=== PATIENT | female | born 1985 | race Caucasian/White ===

== ENCOUNTER 2024-01-22 08:28 | Emergency (ER) | payer SELFPAY ==
--- NOTE | ~2024-01-22 | XR_ITS ---
EXAMINATION: XR CHEST 2 VIEW CLINICAL INFORMATION: Fever and cough, bodyaches COMPARISON: None TECHNIQUE: PA and lateral views of the chest obtained. FINDINGS: The lungs are clear. There are no pleural effusions. The cardiomediastinal silhouette is normal. XR/XR chest 2V IMPRESSION: No acute disease. Electronically signed by: Fareed Abrams MD 01/22/2024 09:47 AM EDT RP
[2024-01-22 08:52] VITALS: BP 140/86; PULSE 94; RESP 20; TEMP 36.8; O2SAT 96; BMI 37.0
--- NOTE | 2024-01-22 09:34 | ED_ITS ---
HPI - General Adult General Chief complaint: Dyspnea Stated complaint: Fever, cough, chills Time Seen by Provider: 01/22/24 09:02 Source: patient Mode of arrival: ambulatory Limitations: no limitations History of Present Illness ED Provider: SONU SILVA PA-C HPI narrative: 38 year old female with pmhx significant for HTN presents to the ED today for evaluation of productive cough, general malaise, myalgias, headache, SOB more notable on exertion and chest/ nasal congestion x2 days. States her two children at home have been ill with URI this past week. Children tested negative for c ovid/flu/rsv. Patient self tested at home for covid on Sunday with negative results. Reports associated subjective fevers, nausea and loose stools x2 2 days ago which have since resolved. Denies history of respiratory illnesses/asthma. Denies recent history for smoking however tates I do smoke some marijuana occasionally on the weekends, but haven't in 1-2 weeks . Denies OCP use. Denies recent travel or long car rides. Denies sore throat, chest pain, wheezing, calf pain/swelling, rashes. Related Data Previous Rx's ?Medication ?Instructions ?Recorded hydrochlorothiazide 12.5 mg tablet 12.5 mg PO DAILY 30 days #30 tabs 11/22/23 benzonatate 100 mg capsule 100 mg PO BID PRN cough #20 caps 01/22/24 prednisone 20 mg tablet 40 mg (2 x 20 mg) PO DAILY 4 days 01/22/24 #8 tabs Allergies Allergy/AdvReac Type Severity Reaction Status Date / Time No Known Allergies Allergy Verified 01/22/24 08:57 Review of Systems Review of Systems: Constitutional: No fever, chills, fatigue, night sweats, weight changes ENT/Mouth: No ear pain, hearing loss, nasal congestion, sinus pain, rhinorrhea, sore throat Eyes: No eye pain, swelling, redness, vision changes, discharge Cardio: No chest pain, palpitations, SOW, orthopnea, peripheral edema Pulm: No wheezing, dyspnea, hemoptysis, +productive cough, +SOB GI: No nausea, vomiting, hematemesis, abdominal pain, diarrhea, constipation, hematochezia, melena : No irregular bleeding, dysuria, frequency, urgency, hesitancy, hematuria, flank pain, urinary flow changes, urinary incontinence or retention MSK: No back pain, neck pain, joint pain, +myalgias Skin: No lesions, rashes Neuro: No weakness, numbness, paresthesias, LOC, dizziness, headache Psych: No anxiety/panic, depression, SI/HI, AH/VH All other systems reviewed and are negative. FORMERLY [facility], 1928–1983 Past Medical History Attestation statement: The following information was validated with the patient. Source: old records reviewed and nursing notes reviewed Social History Social History Advance Directives: No Advance Directives Information Provided: Yes Physical Exam ED Vital Signs: Vital Signs - 24 hr 01/22/24 08:52 01/22/24 09:54 01/22/24 10:20 Temperature 98.2 F 97.0 F Pulse Rate 94 95 124 H Respiratory Rate 20 18 16 Blood Pressure 140/86 H 145/84 H Pulse Oximetry 96 98 Oxygen Delivery Method Room Air Room Air BMI result Body Mass Index 37.0 vitals stable. not hypoxic. afebrile. General: Well appearing, in no acute distress. Skin: Warm, dry, intact. No rashes or lesions. Head: Normocephalic, atraumatic. EENT: Hearing is intact b/l. Conjunctiva clear. PERRLA. Moist mucous membranes.? Neck: Supple without LAD. FROM. Trachea midline.? Cardiac: Chest wall symmetric. RRR. No MRG. No JVD. Lungs: Normal respiratory effort without accessory muscle use. CTA bilaterally. No rales, rhonchi, or wheezes.? Back: No midline spinous or paraspinal tenderness. No step off deformity. Ext: Upper and lower extremities atraumatic, without tenderness, deformity, swelling or erythema. Full ROM throughout. no calf tenderness b/l. Neuro: AOx3. Normal speech. Ambulating with steady gait. Psych: Appropriate mood and affect. Responds appropriately to questions. Course Course Course Narrative: 1122 -- patient tested negative for COVID, flu, RSV. Her chest x-ray does not reveal pneumonia. She was treated with albuterol and Solu-Medrol in the ED and reports improvement in breathing. Likely viral upper respiratory infection. Will send her home with prednisone and Tessalon Perles for cough. Patient has remained stable throughout ED visit today. Discussed worrisome signs and symp toms and when to return to the ED. All questions answered at this time. Patient is agreeable with disposition and stable for discharge. Medications Administered Discontinued Medications Generic Name Dose Route Start Last Admin Trade Name Ev PRN Reason Stop Dose Admin Albuterol Sulfate 2.5 mg/ 5 mg 01/22/24 09:47 01/22/24 09:50 Albuterol Sulfate 2.5 mg INHALE 01/22/24 09:48 5 mg ONCE ONE Administration Methylprednisolone Sodium Succinate 80 mg 01/22/24 09:57 01/22/24 10:07 Methylprednisolone Sod Succ 125 Mg/2 Ml Vial IVPUSH 01/22/24 09:58 80 mg ONCE ONE Administration Medical Decision Making Medical Decision Making [facility] Narrative: 38 year old female with pmhx significant for HTN presents to the ED today for evaluation of productive cough, general malaise, myalgias, headache, SOB more notable on exertion and chest/ nasal congestion x2 days. Patient hypertensive to 140/86, vitals otherwise WNL. She did become tachycardic to 124 after albuterol treatment. Not hypoxic. Bronchospastic cough on exam. No tripoding or increased effort of breathing. Lungs are CTA bilaterally without wheezes, rales, rhonchi. RRR. Skin warm, dry, intact. No calf tenderness bilaterally. B/l EACs and TMs wnl. Posterior oropharynx wnl. Differential diagnosis includes viral syndrome, pneumonia, bronchitis. PREC 0- PE unlikely. Presentation not consistent with CATHERINE, arrhythmia, pleural effusion. Plan for viral swabs, CXR, ED bronch protocol, steroid, re-evaluation. Differential Diagnosis Differential Diagnoses: The differential diagnosis associated with the presentation includes as above. Admission/Observation Not indicated. Lab Data [facility] Lab Attestation statement: I reviewed the patient's lab results. as above. Labs: Lab Results 01/22/24 Range/Units 09:14 Influenza Type A (PCR) NEGATIVE (Negative) Influenza Type B (PCR) NEGATIVE (Negative) RSV RNA Qual (PCR) NEGATIVE (Negative) SARS-CoV-2 RNA (RT-PCR) NEGATIVE (Negative) Independent Interpretation I performed an independent interpretation of an: Plain X-Ray Interpretation: CXR without infiltrate or consolidation, agree with radiologist's interpretation. Radiology Impression Discussion of test interpretation with radiology: I have reviewed the radiologist's reading. Radiologist Impression: EXAMINATION: XR CHEST 2 VIEW CLINICAL INFORMATION: Fever and cough, bodyaches COMPARISON: None TECHNIQUE: PA and lateral views of the chest obtained. FINDINGS: The lungs are clear. There are no pleural effusions. The cardiomediastinal silhouette is normal. XR/XR chest 2V IMPRESSION: No acute disease. Electronically signed by: Fareed Abrams MD 01/22/2024 09:47 AM EDT RP Independent Historian Clinical information obtained from an independent historian. History obtained from or confirmed by: Spouse External Record Review External record reviewed: Inpatient record Social Determinants Patient?s care significantly limited by Social Determinants of Health including: Other Social Determinant of Health Critical Care Time Critical Care Time Critical Care Time: No Discharge Plan Discharge Clinical Impression: Upper respiratory infection Patient Disposition: Home, Self-Care Instructions: Upper Respiratory Infection (ED), Acute Bronchitis (ED), Viral Syndrome (ED) Additional Instructions: You tested negative for covid, flu, rsv. Your chest xray does not reveal pneumonia. You were treated with a breathing treatment and steroid in the ED today with improvement. You likely have a viral upper respiratory infection that does not require treatment with antibiotics. Prednisone as a steroid that has been sent to your pharmacy. Take this over the next 4 days starting tomorrow as you have already received a dose in the ED today. Tessalon Perles have been sent to your pharmacy for treatment of cough. Take these as needed. Return with new or worsening symptoms. In the case of an emergency call 911. Prescriptions: New benzonatate 100 mg capsule 100 mg PO BID PRN (Reason: cough) Qty: 20 0RF prednisone 20 mg tablet 40 mg PO DAILY 4 Days Qty: 8 0RF No Action hydrochlorothiazide 12.5 mg tablet 12.5 mg PO DAILY 30 Days Qty: 30 5RF Rx Instructions: [id number] [facility] [id number] Member [id number] Referrals: Charleen Alcazar PA-C [Primary Care Provider] - Stand Alone Forms: Work/School Release Print Language: Cambodian
[2024-01-22] MEDS: Albuterol Sulfate 2.5 MG, Albuterol Sulfate (0.083%) 2.5 MG 5 MG INHALE (09:50)
[2024-01-22 09:54] VITALS: PULSE 95; RESP 18; O2SAT 98
[2024-01-22 10:01] LABS: Influenza A PCR NEGATIVE (Negative); Influenza B PCR NEGATIVE (Negative); Resp Syncy Virus RNA Qual PCR NEGATIVE (Negative); SARS COV2 PCR INHOUSE NEGATIVE (Negative)
[2024-01-22] MEDS: methylPREDNISolone Sod Succ 125 MG/2 ML VIAL 80 MG IVPUSH (10:07)
[2024-01-22 10:20] VITALS: BP 145/84; PULSE 124; RESP 16; TEMP 36.1; O2SAT 98
[2024-01-22 11:54] VITALS: BP 145/84; PULSE 124; RESP 16; TEMP 36.1; O2SAT 98
== END 2024-01-22 11:55 | disposition home or self-care (01) ==
PROVIDERS: Emergency Provider Emergency Medicine Emergency Medical Services; PCP Family Medicine
DX: J06.9 Acute upper respiratory infection, unspecified (principal); R06.02 Shortness of breath; R50.9 Fever, unspecified; I10 Essential (primary) hypertension; R05.9 Cough, unspecified; R09.81 Nasal congestion; M79.10 Myalgia, unspecified site; Z03.818 Encounter for observation for suspected exposure to other biological agents ruled out; Z79.899 Other long term (current) drug therapy
CPT/HCPCS: 0241U; 71046; 94640; 96374; 99283; 99284; J2919

== ENCOUNTER 2025-02-25 07:51 | Emergency (ER) | payer SELFPAY ==
--- NOTE | ~2025-02-25 | XR_ITS ---
EXAMINATION: XR FEMUR 2 VIEWS RIGHT HISTORY: felt pop hamstring COMPARISON: There are no prior studies available for comparison. FINDINGS: AP and lateral views of the right femur are submitted. Osseous mineralization is normal. There is no fracture or dislocation. The visualized hip and knee joint spaces are preserved. The soft tissues are unremarkable. XR/XR femur RT 2V IMPRESSION: Unremarkable examination of the right femur. Electronically signed by: Pranay Ibrahim MD 02/25/2025 08:55 AM NARA
[2025-02-25 07:54] VITALS: BP 161/76; PULSE 73; RESP 20; TEMP 36.1; O2SAT 98; BMI 37.9
--- NOTE | 2025-02-25 07:57 | ED.GENADULT ---
HPI - General Adult General Chief complaint: Extremity Injury, Lower Stated complaint: Knee Leg Pain Time Seen by Provider: 02/25/25 07:55 Source: patient Mode of arrival: ambulatory Limitations: no limitations History of Present Illness ED Provider: ALEXANDRA SNYDER PA-C HPI narrative: 39 year old female presents to the ED today for evaluation of right leg pain x last night. Patient reports twisting motion of her right lower extremity when she felt a pop to her posterior thigh/buttock region. Having shooting pain down her right leg into her right knee. Reports difficulty ambulating. Denies any numbness/tingling/weakness of the right lower extremity. Denies blunt trauma or injury. Related Data Previous Rx's ?Medication ?Instructions ?Recorded benzonatate 100 mg capsule 100 mg PO BID PRN cough #20 caps 01/22/24 prednisone 20 mg tablet 40 mg (2 x 20 mg) PO DAILY 4 days 01/22/24 #8 tabs hydrochlorothiazide 12.5 mg tablet 12.5 mg PO DAILY 90 days #90 tabs 11/12/24 paroxetine HCl 10 mg tablet (Paxil) 10 mg PO DAILY 90 days #90 tabs 01/14/25 naproxen 500 mg tablet 500 mg PO BID PRN pain (scale 02/25/25 score 4-6) #30 tabs Allergies Allergy/AdvReac Type Severity Reaction Status Date / Time No Known Allergies Allergy Verified 02/25/25 07:56 Review of Systems Review of Systems: Yes all other systems are reviewed and are negative PMFSH Past Medical History Attestation statement: The following information was validated with the patient. Source: old records reviewed and nursing notes reviewed Social History Social History Advance Directives: No Advance Directives Information Provided: Yes Patient : No Physical Exam ED Vital Signs: Vital Signs - 24 hr 02/25/25 07:54 02/25/25 08:25 Temperature 96.9 F Pulse Rate 73 75 Respiratory Rate 20 21 H Blood Pressure 161/76 H 146/86 H Pulse Oximetry 98 96 Oxygen Delivery Method Room Air Room Air BMI result Body Mass Index 37.9 hypertensive, vitals are otherwise wnl General: Well appearing, in no acute distress. Skin: Warm, dry, intact. No rashes or lesions. Head: Normocephalic, atraumatic. EENT: Hearing is intact b/l. Conjunctiva clear. PERRLA. EOM intact. Moist mucous membranes.? Neck: Supple without LAD Cardiac: Chest wall symmetric. RRR Lungs: Normal respiratory effort without accessory muscle use. CTA bilaterally Back: No midline spinous or paraspinal tenderness. No step off deformity. Ext: Upper and lower extremities atraumatic, without tenderness, deformity, swelling or erythema. +Reproducible tenderness to palpation of posterior thigh along hamstring muscles. No overlying ecchymosis or hematoma. No palpable induration. compartments soft, compressible. Able to fully extend the right knee, reports pain to hamstring muscles with flexion of the right knee. 2+dp pulse intact. ambulating w/ limping gait. Neuro: AOx3. Normal speech Course Course Course Narrative: xr right femur unremarkable. medicated w/ toradol - endorses improvement in pain. Likely hamstring injury. Will provide patient with crutches. Educated on supportive management. Advised outpatient follow up. Patient has remained stable throughout ED visit today. Discussed worrisome signs and symptoms and when to return to the ED. All questions answered at this time. Patient is agreeable with disposition and stable for discharge. Medications Administered Discontinued Medications Generic Name Dose Route Start Last Admin Trade Name Freq PRN Reason Stop Dose Admin Ketorolac Tromethamine 30 mg 02/25/25 08:19 02/25/25 08:30 Ketorolac Tromethamine 30 Mg/Ml Vial IM 02/25/25 08:20 30 mg ONCE ONE Administration Procedures Orthopedic Splinting/Casting Injury #1: Side: right Other Orthopedic Equipment: crutches Medical Decision Making Medical Decision Making MDM Narrative: 39 year old female presents to the ED today for evaluation of right leg pain x last night. Hypertensive, vitals otherwise WNL. She is generally well-appearing, no acute distress. on exam, rreproducible tenderness to palpation of posterior thigh along hamstring muscles. No overlying ecchymosis or hematoma. No palpable induration. Compartments soft, compressible. Able to fully extend the right knee, reports pain to hamstring muscles with flexion of the right knee. 2+dp pulse intact. ambulating w/ limping gait. Differential diagnosis includes hamstring sprain/strain, muscle spasm. Lower suspicion for fracture. Unlikely intramuscular hematoma, DVT, arterial occlusion, threat to limb, compartment syndrome. Differential Diagnosis Differential Diagnoses: The differential diagnosis associated with the presentation includes As above Admission/Observation not indicated. Independent Interpretation I performed an independent interpretation of an: Plain X-Ray Interpretation: xr right femur without fracture Radiology Impression Discussion of test interpretation with radiology: I have reviewed the radiologist's reading. Radiologist Impression: Procedure(s): XR femur RT 2V Accession Number(s): [id number] cc: Charleen Alcazar PA-C; Alexandra Snyder~ Reason for Exam: felt pop hamstring EXAMINATION: XR FEMUR 2 VIEWS RIGHT HISTORY: felt pop hamstring COMPARISON: There are no prior studies available for comparison. FINDINGS: AP and lateral views of the right femur are submitted. Osseous mineralization is normal. There is no fracture or dislocation. The visualized hip and knee joint spaces are preserved. The soft tissues are unremarkable. XR/XR femur RT 2V IMPRESSION: Unremarkable examination of the right femur. Electronically signed by: Pranay Ibrahim MD 02/25/2025 08:55 AM [facility] External Record Review External record reviewed: Inpatient record Prescription Management I considered prescription management with: Pain Medication Social Determinants Patient?s care significantly limited by Social Determinants of Health including: Other Social Determinant of Health Critical Care Time Critical Care Time Critical Care Time: No Discharge Plan Discharge Clinical Impression: Hamstring strain Patient Disposition: Home, Self-Care Instructions: Muscle Strain (ED) Additional Instructions: You were evaluated in the ED today for acute pain to the back of your right thigh. Your physical exam and x-rays are reassuring. I have suspicion that you strained your hamstring. Your pain improved with Toradol in the ED today. I recommend supportive care including NSAIDs (naproxen), rest and ice at home. I have provided you with crutches for comfort. Please follow up with PCP and orthopedic provider. You have been provided with a referral. Call them to establish care. They will not call you. Return with any new or worsening symptoms. In the case of an emergency call 911. Prescriptions: New naproxen 500 mg tablet 500 mg PO BID PRN (Reason: pain (scale score 4-6)) Qty: 30 0RF No Action hydrochlorothiazide 12.5 mg tablet 12.5 mg PO DAILY 90 Days Qty: 90 1RF Rx Instructions: [id number] [facility] [id number] Member [id number] paroxetine HCl [Paxil] 10 mg tablet 10 mg PO DAILY 90 Days Qty: 90 0RF benzonatate 100 mg capsule 100 mg PO BID PRN (Reason: cough) Qty: 20 0RF prednisone 20 mg tablet 40 mg PO DAILY 4 Days Qty: 8 0RF Referrals: [facility] [Provider Group] Referral Note: hamstring injury Charleen Alcazar PA-C [Primary Care Provider, Family Practice] Print Language: Qatari
--- NOTE | 2025-02-25 08:21 | PC.NURSE ---
patient roomed and changed. examined by provider. VSS. complains of pain right leg and some numbness. elevated on pillows for comfort. cms good to both extremeties.
[2025-02-25 08:25] VITALS: BP 146/86; PULSE 75; RESP 21; O2SAT 96
[2025-02-25 10:30] VITALS: BP 142/93; PULSE 68; RESP 21; TEMP 36.4; O2SAT 98
--- OUTSIDE RECORDS SUMMARY | 2025-02-25 16:12 | XMS_ITS | Encounter Summary ---
Author Organization [facility] Address [address] [place] [phone] Phone Care Team Providers Care Switch Cleaner Name Role Phone Mayra Harrison CNP Primary Care Provider + Pcp, Unknown Primary Care Provider Unavailabl e Reason for Referral * Physical Therapy (Routine) - Closed Specialty Diagnoses / Procedures Referred By Eugene t Referred To Contact Physical Therapy Diagnoses Encounter for rehabilitation System, Provider Not In, PhD [address] [address] Nina Slade, PT [email or web address] Referral ID Status Reason Start Date Expiration Date Visits Re quested Visits Authorized [id number] Closed 05/31/2017 06/06/2018 22 22 Encounter Details Date Type Department Care Team (Latest Contact Info) Description 05/31/2017 Transcribe Orders [facility] Rehabilitation [facility] [address] [place] [address] Mayra Harrison CNP [address] [place] [phone] [email or web address] Encounter for rehabilitation (Primary Dx) Social History Tobacco Use Types Packs/Day Years Used Date Smoking Tobacco: Never Assessed Comments Unknown Sex and Gender Information Value Date Recorded Sex Assigned at Female 05/23/2021 8:16 PM EST Legal Sex Female 9:17 PM EDT Gender Identity Female 05/23/2021 8:16 PM EST Sexual Orientation Straight 05/23/2021 8: 16 PM EST documented as of this encounter Plan of Treatment Not on file documented as of this encounter Procedures Procedure Name Priority Date/Time Associated Diagnosis Comments AMB REFERRAL TO [facility] PHYSICAL THERAPY Routine 05/31/2017 5:05 PM EST Encounter for rehabilitation documented in this encounter Results * Ambulatory referral to [facility] Physical Therapy (05/31/2017 5:05 PM EST) us Provider Not In System PhD AMB [facility] REFERRALS Fin al Result documented in this encounter Visit Diagnoses Diagnosis Encounter for rehabilitation- Primary documented in this encounter Additional Health Concerns Infection Onset Date Last Indicated Resolved Time CoV-Risk 05/22/2022 05/22/2022 06/02/2022 1:23 AM EST documented as of this encounter Care Teams Switch Cleaner Relationship Specialty Start Date End Date Mayra Harrison CNP [address] [place] [phone] [email or web address] PCP - General Family Medicine 04/13/17 05/21/22 Pcp, Unknown PCP - General 05/22/22 documented as of this encounter Additional Source Comments The information contained in this document represents components of the legal health record. It is not the complete legal health record.[facility]
--- OUTSIDE RECORDS SUMMARY | 2025-02-25 16:12 | XMS_ITS | Encounter Summary ---
Author Organization [facility] Address [address] [place] [address] Phone Care Team Providers Care Parent Coach Name Role Phone Mayra Harrison CNP Primary Care Provider + Pcp, Unknown Primary Care Provider Unavailabl e Encounter Details Date Type Department Care Team (Latest Contact Info) Description 11/09/2020 Transcribe Orders [facility] [address] [place] [address] Fariha Thomason, [facility] [address], [address] [place] [address] [email or web address] Multigravida of advanced maternal age in first trimester (Primary Dx) Social History Tobacco Use Types Packs/Day Years Used Date Smoking Tobacco: Former Smokeless Tobacco: Never Alcohol Use Standard Drinks/Week Comments Not Currently 0 (1 standard drink = 0.6 oz pure alcohol) History of alcohol abuse. Sober since 2019. Comments Yes Sex and Gender Information Value Date Recorded Sex Assigned at Female 05/23/2021 8:16 PM EST Legal Sex Female 9:17 PM EDT Gender Identity Female 05/23/2021 8:16 PM EST Sexual Orientation Straight 05/23/2021 8: 16 PM EST documented as of this encounter Plan of Treatment Not on file documented as of this encounter Results * TOTAL PROTEIN CREATININE RATIO, RANDOM URINE (03/23/2021 8:49 AM EST) URINE TOTAL PROTEIN 8.3 mg/dL [facility] URINE CREATININE 79 mg/dL [facility] URINE TP CRE RATIO 0.11 0 - 0.19 [facility] Urine (Urine) 03/23/2021 8:4 9 AM EST 03/23/2021 10:18 AM EST us Fariha Limano CNM LAB URINE ORDERABLES F inal Result [facility] [address] [place] [address] documented in this encounter Visit Diagnoses Diagnosis Multigravida of advanced maternal age in first trimester- Primary documented in this encounter Additional Health Concerns Infection Onset Date Last Indicated Resolved Time CoV-Risk 05/22/2022 05/22/2022 06/02/2022 1:23 AM EST documented as of this encounter Care Teams Parent Coach Relationship Specialty Start Date End Date Mayra Harrison CNP [address] [place] [phone] [email or web address] PCP - General Family Medicine 04/13/17 05/21/22 Pcp, Unknown PCP - General 05/22/22 documented as of this encounter Additional Source Comments The information contained in this document represents components of the legal health record. It is not the complete legal health record.[facility]
--- OUTSIDE RECORDS SUMMARY | 2025-02-25 16:12 | XMS_ITS | Encounter Summary ---
Author Organization [facility] Address [address] [place] [phone] Phone Care Team Providers Care Button Bradder Name Role Phone Mayra Harrison CNP Primary Care Provider + Pcp, Unknown Primary Care Provider Unavailabl e Reason for Referral * Physical Therapy (Routine) - Closed Specialty Diagnoses / Procedures Referred By Eugene patterson Referred To Contact Physical Therapy Diagnoses Encounter for rehabilitation Mayra Harrison CNP Phone: tel: fax: [email or web address] Phone: tel: Referral ID Status Reason Start Date Expiration Date Visits Re quested Visits Authorized [id number] Closed 10/23/2017 10/23/2018 1 1 Encounter Details Date Type Department Care Team (Latest Contact Info) Description 10/23/2017 Transcribe Orders [facility] [address] [place] [address] Mayra Harrison CNP [address] [place] [phone] [email or web address] Encounter for rehabilitation (Primary Dx) Social History Tobacco Use Types Packs/Day Years Used Date Smoking Tobacco: Never Smokeless Tobacco: Never Comments Unknown Sex and Gender Information Value Date Recorded Sex Assigned at Female 05/23/2021 8:16 PM EST Legal Sex Female 9:17 PM EDT Gender Identity Female 05/23/2021 8:16 PM EST Sexual Orientation Straight 05/23/2021 8: 16 PM EST documented as of this encounter Plan of Treatment Scheduled Referrals Name Type Priority Associated Diagnoses Orde r Schedule Ambulatory referral to [facility] Physical Therapy Outpatient Referral Routine Encounter for rehabilitation Ordered: 10/23/2017 documented as of this encounter Visit Diagnoses Diagnosis Encounter for rehabilitation- Primary documented in this encounter Additional Health Concerns Infection Onset Date Last Indicated Resolved Time CoV-Risk 05/22/2022 05/22/2022 06/02/2022 1:23 AM EST documented as of this encounter Care Teams Button Bradder Relationship Specialty Start Date End Date Marya Harrison CNP [address] [place] [phone] [email or web address] PCP - General Family Medicine 04/13/17 05/21/22 Pcp, Unknown PCP - General 05/22/22 documented as of this encounter Additional Source Comments The information contained in this document represents components of the legal health record. It is not the complete legal health record.[facility]
--- OUTSIDE RECORDS SUMMARY | 2025-02-25 16:12 | XMS_ITS | Encounter Summary ---
Author Organization [facility] Address [address] [facility] [address] [place] [phone] Phone Care Team Providers Care Fuel Truck Driver Name Role Phone Mayra Harrison CNP Primary Care Provider + Pcp, Unknown Primary Care Provider Unavailabl e Encounter Details Date Type Department Care Team (Late st Contact Info) Description 04/13/2017 Transcribe Orders [facility] [address] [place] [address] Mayra Harrison CNP [address] [place] [phone] [email or web address] Abdominal pain, right lower quadrant (Primary Dx) Social History Tobacco Use Types [...] documented as of this encounter Results * (ABNORMAL) CBC and differential (04/13/2017 2:28 PM EST) WBC 8.67 3.40 - 11.20 K/uL [facility] RBC 4.96(H) 3.80 - 4.80 M/uL [facility] HGB 13.9 12.0 - 15.0 g/dL [facility] HCT 40.7 36.0 - 46.0 % [facility] PLT 297 130 - 400 K/uL [facility] MCV 82.1 79.0 - 98.0 fL [facility] MCH 28.0 27.0 - 34.8 pg [facility] MCHC 34.2 31.5 - 36.0 g/dL [facility] RDW 12.4 10.8 - 14.6 % [facility] MPV 10.3 9.4 - 12.4 fl [facility] NRBC 0.00 /100 WBCs [facility] ABSOLUTE NRBC 0.00 K/uL [facility] DIFF METHOD Auto [facility] NEUTS 65.5 45.30 - 77.70 % [facility] LYMPHS 24.6 12.30 - 39.70 % [facility] MONOS 6.5 4.10 - 12.80 % [facility] EOS 2.2 0 - 7.2 % [facility] BASOS 1.0 0 - 2.80 % [facility] Granulocytes, immature (%) 0.2 0.0 - 0.9 % [facility] ABSOLUTE NEUTS 5.68 1.40 - 7.70 K/uL [facility] ABSOLUTE LYMPHS 2.13 0.60 - 3.20 K/uL [facility] ABSOLUTE MONOS 0.56 0.11 - 0.59 K/uL [facility] ABSOLUTE EOS 0.19 0.01 - 0.50 K/uL [facility] ABSOLUTE BASOS 0.09(H) 0.00 - 0.08 K/uL [facility] Granulocytes, immature 0.02 0.00 - 0.05 K/uL [facility] Blood 04/13/2017 2:28 PM EST 04/13/2017 2:30 PM EST us Mayra Harrison PROCESSING REP LAB BLOOD BKR ORDERABLES Final Result [facility] [address] [place] [address] * (ABNORMAL) Basic metabolic panel (04/13/2017 2:28 PM EST) SODIUM 140 133 - 146 mmol/L [facility] CHLORIDE 99 96 - 108 mmol/L [facility] POTASSIUM 3.0(L) 3.3 - 5.1 mmol/L [facility] CO2 28 21 - 35 mmol/L [facility] BUN 8 6 - 19 mg/dL [facility] CREATININE 0.60 0.5 - 1.5 mg/dL [facility] GLUCOSE 103(H) 70 - 99 mg/dL [facility] CALCIUM 9.3 8.4 - 10.3 mg/dL [facility] EGFR >60 >60 mL/min/1.7 3m2 [facility] Comment:Abnormal if <60. If patient is -Citizen Of [place], multiply the result by 1.21. ANION GAP 16 10 - 20 mmol/L [facility] Blood 04/13/2017 2:28 PM EST 04/13/2017 2:30 PM EST us Mayra Harrison CNP LAB BLOOD BKR ORDERABLES Final Result Performing Organization Address City/State/[facility] Co de Phone Number [address] [phone] documented in this encounter Visit Diagnoses Diagnosis Abdominal pain, right lower quadrant- Primary documented in this encounter Additional Health Concerns Infection Onset Date Last Indicated Resolved Time CoV-Risk 05/22/2022 05/22/2022 06/02/2022 1:23 AM EST documented as of this encounter Care Teams Fuel Truck Driver Relationship Specialty Start Date End Date Mayra Harrison CNP [address] [place] [phone] [email or web address] PCP - General Family Medicine 04/13/17 05/21/22 Pcp, Unknown PCP - General 05/22/22 documented as of this encounter Additional Source Comments The information contained in this document represents components of the legal health record. It is not the complete legal health record.[facility]
--- OUTSIDE RECORDS SUMMARY | 2025-02-25 16:12 | XMS_ITS | Clinical Summary ---
Author Organization [facility] Address [address] [place] [phone] Phone Care Team Providers Care Cephalometric Tracer Name Role Phone Pcp, Unknown Primary Care Provider Unavailabl e Allergies No known active allergies Medications cranberry fruit extract (CRANBERRY EXTRACT) 250 mg CapIndications:klaus e 2 twice daily Take by mouth daily. Indications: take 2 twice daily Active cholecalciferol, vitamin D3, (VITAMIN D3 ORAL)Indications:T denice 2 once daily Take by mouth. Indications: Take 2 once daily Active ascorbic acid, vitamin C, (VITAMIN C) 1000 MG tabletIndications: Take 2 daily Take 500 mg by mouth daily. Indications: Take 2 daily Active acetaminophen (TYLENOL) 325 mg tablet Take 3 tablets (975 mg total) by mouth every 6 (six) hours as needed for mild pain (fever greater than 38.4 degrees C). 0 05/27/19 22 Active Additional Information Patient not taking.Reported on 07/11/2021 ibuprofen (ADVIL,MOTRIN) 600 MG tablet Take 1 tablet (600 mg total) by mouth every 6 (six) hours as needed (cramping or pain). 05/27/19 22 Active ondansetron (ZOFRAN-ODT) 4 MG disintegrating tablet Take 1 tablet (4 mg total) by mouth every 8 (eight) hours as needed for nausea. 5 tablet 05/22/19 23 Active Active Problems Problem Noted Date Diagnosed Date care and examination 07/11/2021 Assessment & Plan (07/11/2021 12:16 PM EDT): -Advised that vaginal dryness is common during the PP period especially during BF. Recommended using water based lubrications. -Mat mom had blood clotting issues after . Echo will like to avoid estrogen based methods. No personal history of blood disorders -BC POP -Considering Mirena IUD -Information packet given -Pt will call back if she changes her mind and will like to get an IUD control counseling 07/11/2021 Assessment & Plan (07/11/2021 12:11 PM EDT): -An intrauterine device or IUD is a small T-shaped plastic device that is placed in the uterus for long-acting contraception. The Mirena or Kylenna contain levonorgestrel which is a progesterone only hormone. It works by thickening the cervical mucus which then slows the transport of the ovum through the fallopian tube and inhibits sperm motility and function. They are good for 5 years. Although new studies have shown that they are good for 6 years. This form of BC can decrease blood loss and dysmenorrhea during menses. In some women it completely stops their period. SE includes irregular bleeding or spotting for the first few months and/or absence or decrease in bleeding. There is a risk of expulsion of 2%-10% within the first year. We can place the IUD in the office. During placement procedure you may experience some cramping. There is a risk of perforating the uterus during insertion. However we measure the size of the uterus prior to inserting the IUD to avoid that risk. There is also a risk of infection. This procedure is performed in a sterile manner to avoid the risk of infection. You should use condoms for 7 days after insertion. The IUD does not protect against STI. All questions were answered. Chronic hypertension 11/09/2020 Overview (03/22/2021): Was on HCTZ prior to . Off now. Normotensive now. Baseline HELLP labs ordered. Will start baby aspirin at 12 weeks. Rx sent. 03/22 Taking it. CHTN in Baseline HELLP labs, P/C ratio or 24 hour urine Begin baby ASA 12-14 wks No meds and nl BP: -Ultrasound for growth in third trimester (around 28- 32 wks) may repeat if clinically indicated On meds add q 4wks growth and wkly BPP at 32 wks If BP > 140/90 wkly BPP and growth q 4 wks Delivery: -No meds: 38-39+6 -Meds: 37-39+6 -Unstable: 36-37+6 Assessment & Plan (05/21/2021 5:20 PM EST): Echo is here for a BP check. Her BP today is 150/86. She denies MONTGOMERY, visual changes, RUQ pain. HELLP labs were done 05/18 and were normal. Reviewed with Dr Zimmer who recommends eval on L&D for serial BPs, repeat labs and discussion about timing for IOL. Assessment & Plan (05/20/2021 5:53 PM EST): -Admit to CBC -Pt consented to COVID testing -HEELP labs ordered -Serial Bps -NST -Cont. Monitoring -MD in house and available as needed Assessment & Plan (05/17/2021 3:03 PM EST): Normotensive today. Plan for repeat BP check in 4 days. Continue weekly BPP, HELLP labs. Discussed plan for IOL by LIONEL, she would like to schedule this next week after a cervical exam. Knows s/s of PEC and reasons to call. Assessment & Plan (05/13/2021 7:48 AM EST): BP mildly elevated today. Denies MONTGOMERY, RUQ pain, visual changes. Not taking meds. Discussed plan to repeat HELLP labs today and weekly, continue with weekly BPP. Will add in second visit each week for BP check to ensure not in severe range. Plan for delivery at 38-39+6 at this point but this may evolve based on BPs. Patient counseled and agrees with plan of care. Assessment & Plan (05/02/2021 3:32 PM EST): BPP 8/8, vtx fetus today. She denies severe h/a, pitting/extensive edema, epigastric pain, blurry vision. We will repeat labs as precaution. Reviewed calling with any of above sx. RTO 1 week - ov and BPP. Assessment & Plan (04/18/2021 9:26 AM EST): -Taking baby ASA -Elevated BP today 130/76 -Denies any MONTGOMERY, epigastric pain, Visual changes, and sudden onset of swelling. -Will repeat HEELP labs at this time Assessment & Plan (03/22/2021 3:30 PM EST): Taking baby aspirin. BP 122/82 today. Assessment & Plan (12/07/2020 1:24 PM EDT): Baseline HELLP labs normal. Rx for aspirin was sent to pharmacy. Please ensure that patient is taking at next visit. Assessment & Plan (11/09/2020 12:00 PM EDT): HELLP labs ordered. Rx for baby aspirin sent. Will start at 12 weeks Nonintractable migraine 11/09/2020 Lumbar radiculopathy 12/13/2017 Sacroiliitis, not elsewhere classified 8 Acute right-sided low back pain with right-sided sciatica 05/31/2017 Resolved Problems Problem Noted Date Diagnosed Date Resolved Date Normal intrauterine , antepartum 05/23/2021 07/11/2021 Breech presentation of fetus 04/20/2021 05/02/2021 Overview (04/20/2021): Breech on US at 33 weeks Assessment & Plan (05/02/2021 3:11 PM EST): Vertex presentation per BPP today. Polyhydramnios in third trimester 04/15/2021 07/11/2021 Overview (05/23/2021): Polyhydramnios defined as DARIAN >=24, or MVP >=8 L2, growth, and consider re-screening for diabetes amnio-reduction for maternal discomfort/dyspnea only If severe poly (DARIAN >=35 or MVP >=16) MFM consult and delivery at tertiary care (due to very high rate of anomalies) Fluid assessment q 2 weeks from time of diagnosis until 37 wks Wkly fluid assessment starting at 37 weeks Induction after 39wks optional for mild poly (DARIAN 25-29) 04/15: DARIAN 17, polyhydramnios by MVP 05/03 DARIAN 17 05/10: DARIAN 15 05/17 DARIAN 18, MVP 9.2 Assessment & Plan (05/17/2021 3:01 PM EST): Polyhydramnios by MVP only Assessment & Plan (05/13/2021 7:46 AM EST): Fluid has been normal on past two scans. Discussed that weekly BPPs are still indicated for gestational hypertension but do not anticipate abnormal DARIAN. Assessment & Plan (05/02/2021 3:33 PM EST): DARIAN 5.8 Assessment & Plan (04/18/2021 9:25 AM EST): 04/15/21: US prelim report total DARIAN 17.76, MVP 8.87, EFW 86%, BPP 8/8 -Discussed diagnosis of Polyhydramnios, implications and adverse effects. -BPP in 2 wks for DARINA Uterine size date discrepanc y , third trimester 03/22/2021 07/11/2021 Overview (05/10/2021): Measuring 35cm at 30 weeks. Growth US ordered. -04/15/21 Growth at 86% - 05/10/21 measuring 40 cm at 36 weeks, repeated growth U/S Assessment & Plan (05/17/2021 3:03 PM EST): EFW 95th %ile today with AC in 98th %ile, exam limited by habitus Assessment & Plan (05/10/2021 4:19 PM EST): S>D today by 4 cm, as it has been a month since growth was performed will repeat with next BPP. Assessment & Plan (04/18/2021 9:25 AM EST): -04/15/21 Growth at 86% Assessment & Plan (03/22/2021 3:31 PM EST): Measuring 35cm at 30 weeks. Growth US ordered. Club foot, , affecting care of mother, antepartum 01/21/2021 05/13/2021 Overview (2021): NO evidence of club foot on follow up level 2 ultrasound Unable to exclude unilateral clubbed foot on level 2 anatomy scan- repeat scan is scheduled for 01/31/21- rescheduled by patient- now happening on 02/24 Supervision of high risk eld ersb multigravida in third trimester 11/09/2020 07/11/2021 Overview (05/17/2021): CNM OB-CMI score: 1 [10/26/2020] Group PN care- has info Rh + Antibodies positive. No ID. Repeat at 28 weeks - neg GC/Chlam neg PAP NIL/HPV neg 12/07/20 Tdap - accepts at 32 week visit Flu 01/14/21 COVID: J&J 07/16/20- plans to get booster Hgb 11.4 GTT 136 28 wk Repeat RPR neg GBS neg PPBC unsure, does not want more kids. Considering interval tubal, vasectomy, IUD screening low risk cfDNA Assessment & Plan (05/21/2021 5:20 PM EST): Echo is a 36 y.o. at 38w2d doing well. Denies VB/LOF/Ctxs. + FM. Assessment & Plan (05/17/2021 3:00 PM EST): Feels well. Discussed GBS neg. Discussed PP BCM, she is sure her family is complete after this baby but has not tolerated hormonal BCMs in the past. Cannot use estrogen due to cHtn. Discussed IUDs, male and female sterilization. She will consider. Assessment & Plan (05/13/2021 7:49 AM EST): Feels well, other than musculoskeletal concerns. Visit focused on plan of care for cHtn. GBS collected today. Assessment & Plan (05/02/2021 3:32 PM EST): Echo is feeling fairly well; she reports active fetus and denies LOF, bleeding, u/cs. BPP 8/, vtx fetus today. She denies severe h/a, pitting/extensive edema, epigastric pain, blurry vision. We will repeat labs as precaution. Reviewed calling with any of above sx. RTO 1 week - ov and BPP. Assessment & Plan (04/18/2021 9:20 AM EST): Echo is a 36 y.o. at 33w1d states she feels well today. Denies any concerns at this time. Denies any LOF/Vaginal bleeding/Ucs. Reports +FM -Discussed FM at this GA -Review signs and symptoms of Labor and when/how to contact midwives -Reviewed end of discomforts and comfort measures. Assessment & Plan (03/22/2021 3:32 PM EST): Echo is a 36 y.o. at 29w5d. Feeling well. Works at [employer] and has worked the past 13 days due to staffing shortage. Has tomorrow off and will do third trimester labs then. Active baby. Denies BH. Reviewed 10lb wt gain thus far. Accepts tdap next visit. Reviewed third trimester warning signs, when to call, how to reach cashier and salesperson CNM. CHIQUITA and growth US in two weeks. Assessment & Plan (02/22/2021 5:00 PM EST): Echo is doing well today- just tired from busy days at work. She is feeling regular movement. Back pain that she was experiencing has improved and she has an appointment with physiatry next week. Second trimester labs ordered and timing reviewed. Echo got the J&J vaccine in July, booster recommended- she will schedule. Assessment & Plan (01/21/2021 3:45 PM EDT): Echo is doing OK today- feeling concerned after yesterdays ultrasound showed possible unilateral clubbed foot. We reviewed ultrasound report and otherwise normal anatomy findings. Recommendation for a repeat ultrasound in two weeks reviewed and scheduled. Echo will reach out to genetics at [facility]. She is otherwise doing well. Feeling some movement. Return OB in 4 weeks. Assessment & Plan (12/07/2020 1:26 PM EDT): Echo is doing ok. She is very tired. Has not been sleeping well at all. Sleep hygiene and going to bed earlier reviewed. Recommended sleep meditation when she cannot go back to sleep in the middle of the night. Unisom as needed. Otherwise well. Normal brief physical exam today. Pap smear collected. Message sent to schedule Level 2. Assessment & Plan (11/09/2020 1:29 PM EDT): Echo is feeling well overall. She does not have much of an appetite but is not feeling sick anymore. She declines physical exam today but is willing to do it at next visit. Due for pap. Reviewed medical history. Labs ordered. Happy to hear heart beat today. Multigravida of advanced mat ernal age in first trimester 11/09/2020 05/02/2021 Overview (11/09/2020): AMA age >35 o Risks of aneuploidy discussed w patient. o Offered - Offer cell free DNA - Level 2 - Offer [facility] and amnio o Pt. chooses cfDNA Assessment & Plan (11/09/2020 12:00 PM EDT): Dating ultrasound and cfDNA ordered today. Immunizations Immunization Administration Dates Next Due COVID-19 (Pre-01/29) Alvin Vaccine, rS-Ad26, P F 07/16/2020 INFLUENZA, SPLIT VIRUS, TRIVALENT W/ PRESERVATIV E IM 01/14/2011 Influenza Quadrivalent Preservative Free IM 11/2020 Tdap 01/22/2018 Family History Medical History Relation Comments Diabetes Father Stomach cancer Father Diabetes type II Maternal Grandmother Aneurysm Mother Brain Clotting disorder Mother Parkinson's disease Mother Relation Status Comments Father Maternal Grandfather Maternal Grandmother Mother Paternal Grandfather Paternal Grandmother Social History Tobacco Use Types Packs/Day Years Used Date Smoking Tobacco: Former Smokeless Tobacco: Never Alcohol Use Standard Drinks/Week Comments Not Currently 0 (1 standard drink = 0.6 oz pure alcohol) History of alcohol abuse. Sober since 2018. Education Answer Date Recorded Are you interested in more education? Not on chuck e 08/04/2022 Are you concerned about learning? Not on file 08/04/2022 No 08/04/2022 No 08/04/2022 Digital Access Answer Date Recorded No 09/04/2022 No 09/04/2022 Reliable internet access at home? Not on file 09/04/2022 Device with a working camera? Not on file Intimate Partner Violence Answer Date R ecorded Are you denied basic needs s uch as food, clothing, or medical care? No 05/22/2022 In the past 12 months have y ou been in a relationship with a person who hurts, threatens, or tries to control you? No 05/22/2022 Are you denied basic needs s uch as food, clothing, or medical care? No 05/22/2022 In the past 12 months have y ou been in a relationship with a person who hurts, threatens, or tries to control you? No 05/22/2022 Comments No Sex and Gender Information Value Date Recorded Sex Assigned at Female 05/23/2021 8:16 PM EST Legal Sex Female 9:17 PM EDT Gender Identity Female 05/23/2021 8:16 PM EST Sexual Orientation Straight 05/23/2021 8: 16 PM EST Last Filed Vital Signs Vital Sign Reading Time Taken Comments Blood Pressure 145/80 05/22/2022 2:29 PM EST Pulse 102 05/22/2022 12:00 PM EST Temperature 36.4 C (97.5 F) 05/22/2022 2:29 PM EST Respiratory Rate 23 05/22/2022 12:00 PM EST Oxygen Saturation 98% 05/22/2022 2:29 PM EST Inhaled Oxygen Concentration - - Weight 102.1 kg (225 lb) 05/22/2022 9:05 AM EST Height 170.2 cm (5' 7 ) 05/22/2022 9:05 AM EST Body Mass Index 35.24 05/22/2022 9:05 AM EST Plan of Treatment Health Maintenance Due Date Last Done Comments BLOOD PRESSURE 1983 DEPRESSION SCREENING 1995 SMOKING Hx and SMOKELESS TOBACCO SCREENING 02/29/1996 MAMMOGRAM 2023 PAP SMEAR 12/08/2023 12/07/2020 SCREENING FOR DIABETES 05/23/2024 05/23/2021 INFLUENZA VACCINE (#1) 2024 , 01/14/2011 COVID-19 VACCINE (2 2024-2 6 season) 2024 07/16/2020 Adult Td,Tdap Booster 01/23/2028 01/22/2018 HEPATITIS C SCREENING Completed 11/09/2020 , 11/09/2020 HIV ONE-TIME SCREENING (18-6 5 YEARS) Completed 11/09/2020 HEPATITIS A VACCINES Aged Out No long er eligible based on patient's age to complete this topic HIB VACCINES Aged Out No longer eligi ble based on patient's age to complete this topic MENINGOCOCCAL VACCINES (ACWY) Aged Out No longer eligible based on patient's age to complete this topic MENINGOCOCCAL VACCINES (B) Aged Out N o longer eligible based on patient's age to complete this topic PNEUMOCOCCAL VACCINES (0-49 years) Aged Out No longer eligible b ased on patient's age to complete this topic Medical Devices Not on file Procedures Procedure Name Priority Date/Time Associated Diagnosis Comments PAP TEST Routine 12/07/2020 12:00 AM EDT HEPATITIS C ANTIBODY, QUALITATIVE Routine 11/09/2020 11:22 AM EDT Need for hepatitis C screening test from Last 3 Months or Most Recently Relevant to Health Maintenance Results * Pap Smear (12/07/2020 12:00 AM EDT) 12/07/2020 12/08/2020 8:2 8 AM EDT Narrative SEE NARRATIVE - 12/10/2020 11:29 AM EDT [address] [address] Blender Helper: Tiesha Rubio MD PAIRER Cytology Report FINAL DIAGNOSIS A. PAP SMEAR (SUREPATH) CE: SPECIMEN ADEQUACY: Satisfactory for evaluation; transformation zone present. INTERPRETATION: NEGATIVE FOR INTRAEPITHELIAL LESION OR MALIGNANCY. Coccobacilli consistent with shift in bryson Electronically Signed Out By: ELVIN Curtis(ASCP) The Pap test is a screening test primarily for squamous cancers and precursors and has associated false-negative and false-positive results. New technologies such as liquid-based preparations may decrease but will not eliminate all false-negative results. Regular sampling and follow-up of unexplained clinical signs and symptoms are recommended to minimize false negative results. PROCEDURES/ADDENDA HPV Testing (Requested) Ordered Date: 12/08/2020 A. PAP SMEAR (SUREPATH) CE: Human Papilloma Virus Test Negative for high-risk human papillomavirus types 16, 18, 45 and the Other high risk probe set (Includes 31, 33, 35, 39, 51, 52, 56, 58, 59, 66, 68) by [employer] HR-HPV analysis. Clinical correlation is advised. This HPV test was performed at [facility], [address] [place] [address]. This test has been FDA approved for SurePath cervical cytology specimens. The accuracy and precision of this test for all other specimen sources has been verified in the Cytopathology Laboratory of the [facility] and has not been cleared or approved by the U.S. Food and Drug Administration. Clinical correlation is advised. CLINICAL HISTORY Date of Last Menstrual Period: Not Provided Menstrual History: Other Clinical Conditions: Screening Pap SPECIMEN SOURCE A: PAP SMEAR (SUREPATH) CE Patient Name: ECHO LAWS : 1985 (Age: 35) Sex: F Institution: [facility] Location: [facility] Date of Collection: 12/07/2020 Date of Reported: 12/08/2020 13:30 Results to: Fariha Thomason MSN Fariha Thomason CN CYTOLOGY ORDERABLES Ed ited Result - Final SEE NARRATIVE * Hepatitis C antibody, qualitative (11/09/2020 11:22 AM EDT) HCV NON-REACTIV E NON-REACTI VE [facility] Blood 11/09/2020 11:2 2 AM EDT 11/09/2020 11:45 AM EDT Fariha Thomason CNM LAB BLOOD BKR ORDERABL ES Final Result [facility] [address] [place] [address] from Last 3 Months or Most Recently Relevant to Health Maintenance Insurance [facility] C[employer] Advance Directives For more information, please contact: [phone] (9AM - 5PM Rosie/[facility], Sunday-Sunday) Documents on File Type Date Recorded Patient Head Of Advertising Expl anation Healthcare Proxy 05/30/2021 2:21 PM * Full Code (Latest Code Status on File) Date Activated Date Inactivated Comments 05/20/2021 5:48 PM Question Answer Comments Code Status Confirmed With: Patient Care Teams Cephalometric Tracer Relationship Specialty Start Date End Date Pcp, Unknown PCP - General 05/22/22 Additional Source Comments The information contained in this document represents components of the legal health record. It is not the complete legal health record.[facility]
--- OUTSIDE RECORDS SUMMARY | 2025-02-25 16:12 | XMS_ITS | Encounter Summary ---
Author Organization [facility] Address [address] [place] [phone] Phone Care Team Providers Care Evp Name Role Phone Mayra Harrison CNP Primary Care Provider + Pcp, Unknown Primary Care Provider Unavailabl e Encounter Details Date Type Department Care Team (Late st Contact Info) Description 04/13/2017 Procedure Pass [facility], Ct Scan - [address] [address] Social History Tobacco Use Types Packs/Day Years [...] on file documented as of this encounter Visit Diagnoses Not on filedocumented in this encounter Additional Health Concerns Infection Onset Date Last Indicated Resolved Time CoV-Risk 05/22/2022 05/22/2022 06/02/2022 1:23 AM EST documented as of this encounter Care Teams Evp Relationship Specialty Start Date End Date Mayra Harrison CNP [address] [place] [phone] [email or web address] PCP - General Family Medicine 04/13/17 05/21/22 Pcp, Unknown PCP - General 05/22/22 documented as of this encounter Additional Source Comments The information contained in this document represents components of the legal health record. It is not the complete legal health record.[facility]
--- OUTSIDE RECORDS SUMMARY | 2025-02-25 16:13 | XMS_ITS | Encounter Summary ---
Author Organization [facility] Address [address] [facility] [address] [place] [phone] Phone Care Team Providers Care Service Writer Name Role Phone Mayra Harrison CNP Primary Care Provider + Pcp, Unknown Primary Care Provider Unavailabl e Encounter Details Date Type Department Care Team (Late st Contact Info) Description 04/27/2021 Transcribe Orders [facility] [address] [place] [address] Mayra Harrison CNP [address] [place] [phone] [email or web address] Social History Tobacco Use Types Packs/Day Years [...] documented as of this encounter Care Teams Service Writer Relationship Specialty Start Date End Date Mayra Harrison CNP [address] [place] [phone] [email or web address] PCP - General Family Medicine 04/13/17 05/21/22 Pcp, Unknown PCP - General 05/22/22 documented as of this encounter Additional Source Comments The information contained in this document represents components of the legal health record. It is not the complete legal health record.[facility]
--- OUTSIDE RECORDS SUMMARY | 2025-02-25 16:13 | XMS_ITS | Encounter Summary ---
Author Organization [facility] Address [address] [place] [address] [place] [phone] Phone Care Team Providers Care Office Nurse Practitioner Name Role Phone Mayra Harrison CNP Primary Care Provider + Pcp, Unknown Primary Care Provider Unavailabl e Encounter Details Date Type Department Care Team (Late st Contact Info) Description 10/17/2021 Procedure Pass [facility], Ct Scan - [address] [address] Social History Tobacco Use Types Packs/Day Years Used Date Smoking Tobacco: Former Smokeless Tobacco: Never Alcohol Use Standard Drinks/Week Comments Not Currently 0 (1 standard drink = 0.6 oz pure alcohol) History of alcohol abuse. Sober since 2019. Comments No Sex and Gender Information Value [...] documented as of this encounter Care Teams Office Nurse Practitioner Relationship Specialty Start Date End Date Mayra Harrison CNP [address] [place] [phone] [email or web address] PCP - General Family Medicine 04/13/17 05/21/22 Pcp, Unknown PCP - General 05/22/22 documented as of this encounter Additional Source Comments The information contained in this document represents components of the legal health record. It is not the complete legal health record.[facility]
--- OUTSIDE RECORDS SUMMARY | 2025-02-25 16:13 | XMS_ITS | Encounter Summary ---
Author Organization [facility] Address [address] [place] [address] [place] [phone] Phone Care Team Providers Care Angle Shear Operator Name Role Phone Mayra Harrison CNP Primary Care Provider + Pcp, Unknown Primary Care Provider Unavailabl e Encounter Details Date Type Department Care Team (Late st Contact Info) Description 10/17/2021 Procedure Pass [facility], Ct Scan - [address] [phone] Social History Tobacco Use Types Packs/Day Years [...] documented as of this encounter Care Teams Angle Shear Operator Relationship Specialty Start Date End Date Mayra Harrison CNP [address] [place] [phone] [email or web address] PCP - General Family Medicine 04/13/17 05/21/22 Pcp, Unknown PCP - General 05/22/22 documented as of this encounter Additional Source Comments The information contained in this document represents components of the legal health record. It is not the complete legal health record.[facility]
--- OUTSIDE RECORDS SUMMARY | 2025-02-25 16:13 | XMS_ITS | Encounter Summary ---
Author Organization [facility] Address [address] [place] [address] [place] [phone] Phone Care Team Providers Care Business Continuity Analyst Name Role Phone Mayra Harrison CNP Primary Care Provider + Pcp, Unknown Primary Care Provider Unavailabl e Encounter Details Date Type Department Care Team (Late st Contact Info) Description 04/13/2017 Ancillary Orders Virtual Department [address] [place] [address] Mayra Harrison CNP [address] [place] [phone] [email or web address] RLQ abdominal pain; Hematuria, unspecified type; Appendicitis, unspecified appendicitis type Social History Tobacco Use Types Packs/Day Years [...] documented as of this encounter Results * CT ABDOMEN/PELVIS WITH CONTRAST (04/13/2017 4:22 PM EST) Anatomical Region Laterality Modality Abdomen, Pelvis Computed Tomogra phy 04/13/2017 4:39 PM EST Impressions 04/13/2017 5:06 PM EST Tiny calcification in the posterior bladder could represent a recently passed stone or bladder wall calcification. No hydronephrosis or perinephric fat stranding. Marked improvement in hepatic steatosis. 2 cm right ovarian cyst. Status post cholecystectomy. TOTAL CTDIvol: 15.60 mGy POS - [id number] Edited by: Genoveva Amaya on 04/13/2017 5:00 PM Narrative 04/13/2017 5:06 PM EST COMPARISON: 05/03/2016 TECHNIQUE: CT of the abdomen and pelvis with IV and oral contrast. Multiplanar reformatted images generated. Automated exposure control utilized. FINDINGS: CT ABDOMEN: Lower thorax: No infiltrate in the basal lungs. No pleural or pericardial effusions. 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 Marked improvement in hepatic steatosis, now very mild. Gallbladder/biliary tree: Cholecystectomy clips are present. No biliary ductal dilatation. Spleen: No abnormality detected. Pancreas: No abnormality detected. Adrenal glands: No masses. Kidneys/ureters: No hydronephrosis, perinephric fat stranding, or focal lesion. Extrarenal pelves. Vasculature: Small atherosclerotic calcification involving the distal aorta. No aortic aneurysm. Hepatic veins and portal vein are patent. Peritoneum: No evidence of free intraperitoneal air, free fluid, or organized collections. Lymph nodes: Stable prominent periportal lymph node. No new lymphadenopathy. Stomach/duodenum: No abnormality detected. Body wall: No suspicious mass. CT PELVIS: Bladder: 1-2 mm calcification in the posterior midline bladder could represent a recently passed stone or tiny wall calcification. Reproductive: No uterine abnormality. Physiologic changes in the ovaries with the dominant cyst on the right measuring 2 cm. Tampon present within the vagina. Bowel: No evidence of a bowel obstruction or bowel inflammatory changes. Appendix is normal. Terminal ileum is decompressed, limiting its evaluation. Peritoneum: Scant free fluid is likely physiologic. No organized collection. Lymph nodes: No iliac chain or inguinal lymphadenopathy. Bones: No new compression deformities. Slightly progressive moderate to severe disc space narrowing and progressive degenerative endplate spurring at L4-5. No obstructive bone lesion. Procedure Note Mavis Acevedo MD - 04/13/2017 COMPARISON: 05/03/2016 TECHNIQUE: CT of the abdomen and pelvis with IV and oral contrast.Multiplanar reformatted images generated. Automated exposure controlutilized. FINDINGS: CT ABDOMEN: Lower thorax: No infiltrate in the basal lungs. No pleural or pericardialeffusions. 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 Marked improvement in hepaticsteatosis, now very mild. Gallbladder/biliary tree: Cholecystectomy clips are present. No biliaryductal dilatation. Spleen: No abnormality detected. Pancreas: No abnormality detected. Adrenal glands: No masses. Kidneys/ureters: No hydronephrosis, perinephric fat stranding, or focallesion. Extrarenal pelves. Vasculature: Small atherosclerotic calcification involving the distalaorta. No aortic aneurysm. Hepatic veins and portal vein are patent. Peritoneum: No evidence of free intraperitoneal air, free fluid, ororganized collections. Lymph nodes: Stable prominent periportal lymph node. No newlymphadenopathy. Stomach/duodenum: No abnormality detected. Body wall: No suspicious mass. CT PELVIS: Bladder: 1-2 mm calcification in the posterior midline bladder couldrepresent a recently passed stone or tiny wall calcification. Reproductive: No uterine abnormality. Physiologic changes in the ovarieswith the dominant cyst on the right measuring 2 cm. Tampon present withinthe vagina. Bowel: No evidence of a bowel obstruction or bowel inflammatory changes.Appendix is normal. Terminal ileum is decompressed, limiting itsevaluation. Peritoneum: Scant free fluid is likely physiologic. No organizedcollection. Lymph nodes: No iliac chain or inguinal lymphadenopathy. Bones: No new compression deformities. Slightly progressive moderate tosevere disc space narrowing and progressive degenerative endplate spurringat L4-5. No obstructive bone lesion. IMPRESSION: Tiny calcification in the posterior bladder could represent a recentlypassed stone or bladder wall calcification. No hydronephrosis orperinephric fat stranding. Marked improvement in hepatic steatosis. 2 cm right ovarian cyst. Status post cholecystectomy. TOTAL CTDIvol: 15.60 mGy POS - [id number] Edited by: Genoveva Amaya on 04/13/2017 5:00 PM Mayra Harrison [facility] CT ABD/PELVIS Final Result documented in this encounter Visit Diagnoses Diagnosis RLQ abdominal pain Abdominal pain, right lower quadrant Hematuria, unspecified type Appendicitis, unspecified appendicitis type RLQ abdominal pain Abdominal pain, right lower quadrant Hematuria, unspecified type Appendicitis, unspecified appendicitis type documented in this encounter Additional Health Concerns Infection Onset Date Last Indicated Resolved Time CoV-Risk 05/22/2022 05/22/2022 06/02/2022 1:23 AM EST documented as of this encounter Care Teams Business Continuity Analyst Relationship Specialty Start Date End Date Mayra Harrison CNP [address] [place] [phone] [email or web address] PCP - General Family Medicine 04/13/17 05/21/22 Pcp, Unknown PCP - General 05/22/22 documented as of this encounter Additional Source Comments The information contained in this document represents components of the legal health record. It is not the complete legal health record.[facility]
--- OUTSIDE RECORDS SUMMARY | 2025-02-25 16:14 | XMS_ITS | Encounter Summary ---
Author Organization [facility] Address [address] [facility] [address] [place] [phone] Phone Care Team Providers Care Product Safety Technical Assistant Name Role Phone Mayra Harrison CNP Primary Care Provider + Pcp, Unknown Primary Care Provider Unavailabl e Encounter Details Date Type Department Care Team (Late st Contact Info) Description 09/12/2017 Ancillary Orders [facility], X-Ray - [address] [address] Mayra Harrison CNP [address] [place] [phone] [email or web address] Acute right-sided low back pain with right-sided sciatica Social History Tobacco Use Types Packs/Day Years [...] documented as of this encounter Results * XR LUMBOSACRAL SPINE 4 OR MORE VIEWS (09/12/2017 3:02 PM EDT) Anatomical Region Laterality Modality L-spine Radiographic Maay ging 09/12/2017 3:57 PM EDT Impressions 09/12/2017 4:01 PM EDT Diffuse degenerative changes greatest at the L4-5 level. No compression deformities. POS - [id number] Narrative 09/12/2017 4:01 PM EDT HISTORY: Acute right low back pain with sciatica COMPARISON: CT abdomen and pelvis 04/13/2017 FINDINGS: 5 views of lumbar spine are performed. 5 lumbar type vertebral bodies. No compression deformities. Diffuse disc space narrowing greatest and moderate to severe at L4-5. Diffuse endplate spurring. No evidence of spondylolysis or spondylolisthesis. Mild facet arthropathy at the lower 3 levels. Surgical clips in the right upper quadrant from cholecystectomy. Procedure Note Mavis Acevedo MD - 09/12/2017 HISTORY: Acute right low back pain with sciatica COMPARISON: CT abdomen and pelvis 04/13/2017 FINDINGS: 5 views of lumbar spine are performed. 5 lumbar type vertebral bodies. No compression deformities. Diffuse discspace narrowing greatest and moderate to severe at L4-5. Diffuse endplatespurring. No evidence of spondylolysis or spondylolisthesis. Mild facetarthropathy at the lower 3 levels. Surgical clips in the right upperquadrant from cholecystectomy. IMPRESSION: Diffuse degenerative changes greatest at the L4-5 level. No compressiondeformities. POS - [id number] Mayra Eddie Harrison [employer] SUPER[employer]OR IMG XR SPINE Final Re sult * XR THORACIC SPINE 3 VIEW (09/12/2017 2:59 PM EDT) Anatomical Region Laterality Modality T-spine Radiographic Maya ging 09/12/2017 3:53 PM EDT Impressions 09/12/2017 4:47 PM EDT Mild degenerative changes. POS - [id number] Edited by: Genoveva Amaya on 09/12/2017 4:36 PM Narrative 09/12/2017 4:47 PM EDT HISTORY: Low back pain COMPARISON: None FINDINGS: Three views of the thoracic spine are performed. Mild levoscoliosis of the lower spine. No compression deformities. Multiple levels of mild disc space narrowing and spurring primarily in the mid spine. No subluxation. Pedicles appear intact. Procedure Note Mavis Acevedo MD - 09/12/2017 HISTORY: Low back pain COMPARISON: None FINDINGS: Three views of the thoracic spine are performed. Mild levoscoliosis ofthe lower spine. No compression deformities. Multiple levels of milddisc space narrowing and spurring primarily in the mid spine. Nosubluxation. Pedicles appear intact. IMPRESSION: Mild degenerative changes. POS - [id number] Edited by: Genoveva Amaya on 09/12/2017 4:36 PM Mayra Harrison CNP IMG XR SPINE Final Re sult documented in this encounter Visit Diagnoses Diagnosis Acute right-sided low back pain with right-sided sciatica Acute right-sided low back pain with right-sided sciatica Acute right-sided low back pain with right-sided sciatica documented in this encounter Additional Health Concerns Infection Onset Date Last Indicated Resolved Time CoV-Risk 05/22/2022 05/22/2022 06/02/2022 1:23 AM EST documented as of this encounter Care Teams Product Safety Technical Assistant Relationship Specialty Start Date End Date Mayra Harrison CNP [address] [place] [phone] [email or web address] PCP - General Family Medicine 04/13/17 05/21/22 Pcp, Unknown PCP - General 05/22/22 documented as of this encounter Additional Source Comments The information contained in this document represents components of the legal health record. It is not the complete legal health record.[facility]
--- OUTSIDE RECORDS SUMMARY | 2025-02-25 16:14 | XMS_ITS | Encounter Summary ---
Author Organization [facility] Address [address] [place] [phone] Phone Care Team Providers Care Vice President Quality Name Role Phone Mayra Harrison CNP Primary Care Provider + Pcp, Unknown Primary Care Provider Unavailabl e Encounter Details Date Type Department Care Team (Late st Contact Info) Description 10/09/2017 Procedure Pass [facility], [address] [address] Social History Tobacco Use Types Packs/Day Years [...] documented as of this encounter Care Teams Vice President Quality Relationship Specialty Start Date End Date Mayra Harrison CNP [address] [place] [phone] [email or web address] PCP - General Family Medicine 04/13/17 05/21/22 Pcp, Unknown PCP - General 05/22/22 documented as of this encounter Additional Source Comments The information contained in this document represents components of the legal health record. It is not the complete legal health record.[facility]
--- OUTSIDE RECORDS SUMMARY | 2025-02-25 16:14 | XMS_ITS | Encounter Summary ---
Author Organization [facility] Address [address] [place] [address] [place] [phone] Phone Care Team Providers Care Spun Paste Machine Operator Name Role Phone Mayra Harrison CNP Primary Care Provider + Pcp, Unknown Primary Care Provider Unavailabl e Encounter Details Date Type Department Care Team (Late st Contact Info) Description 10/17/2021 Procedure Pass [facility], Ct Scan - [address] [address] Social History Tobacco Use Types Packs/Day Years [...] documented as of this encounter Care Teams Spun Paste Machine Operator Relationship Specialty Start Date End Date Mayra Harrison CNP [address] [place] [phone] [email or web address] PCP - General Family Medicine 04/13/17 05/21/22 Pcp, Unknown PCP - General 05/22/22 documented as of this encounter Additional Source Comments The information contained in this document represents components of the legal health record. It is not the complete legal health record.[facility]
--- OUTSIDE RECORDS SUMMARY | 2025-02-25 16:14 | XMS_ITS | Clinical Summary ---
Author Organization [facility] Address [address] [facility] [address] [place] [address] Care Team Providers Care Patient Case Coordinator Name Role Phone PcpTl Unassigned Primary Care Provider U navailable Allergies No known active allergies Medications * This document contains information received from the source organization and may not represent a complete record from that organization. acetaminophen (Tylenol) 325 MG tablet Take 975 mg by mouth every 6 (six) hours if needed. 05/27/2021 Active hydroCHLOROthiaz rox 12.5 MG tablet Take 1 tablet (12.5 mg) by mouth Once per day. 90 tablet 09/11/2024 Active Active Problems Problem Noted Date Diagnosed Date History of alcohol use 02/06/2023 Overview (02/06/2023): No alcohol use since 2018 Gastroesophageal reflux disease 02/06/2023 02/06/2023 Hepatic steatosis 02/06/2023 02/06/2023 Overview (02/06/2023): Mild on CT 2017. LFTs 05/2021 wnl Major depressive disorder, r ecurrent episode, moderate (CMS/HCC) 02/06/2023 02/06/2023 Overview (02/06/2023): Has some worsening depression the past 6 months. Not enjoying things she used to. On meds when she was younger, zoloft, paxil, amitriptyline. Denies SI. She is reluctant to be on medication. Will refer to . 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 Had steroid injections 2019. Did not help. Not currently bothering her Essential hypertension 11/09/2020 3 Overview (02/06/2023): Pt previously on hydrochlorothiazide, stopped when she got in 2020. At home has been 150/90s. Denies cp, palpitations, edema, orthopnea. Will restart hydrochlorothiazide, SED. Counseled on increased CV risks of high BP. Encouraged low salt diet and exercise. Immunizations Immunization Administration Dates Next Due Influenza Injectable Quadriv alant Preservative Free IIV4 MDCK 02/06/2023 TD (adult), 2 Lf tetanus tox oid, preservative free, adsorbed 02/06/2023 Social History Tobacco Use Types Packs/Day Years Used Date Smoking Tobacco: Never Smokeless Tobacco: Never Alcohol Use Standard Drinks/Week Comments Not Currently 0 (1 standard drink = 0.6 oz pur e alcohol) Housing Stability Answer Date Recorded What is your housing situation today? I have guy zambrano 02/06/[address] you li ve. Do you have problems with any of the following? None of the above 02/06/2023 Food Insecurity Answer Date Recorded Within the past 12 months, y ou worried that your food would run out before you got money to buy more: Never True 02/06/2023 Within the past 12 months,th e food you bought just didn't last and you didn't have enough money to get more: Never True Transportation Answer Date Recorded In the past 12 months, has l ack of transportation kept you from medical appts, meetings, work or from getting things needed for daily living? No 02/06/2023 Utilities Answer Date Recorded In the past 12 months, has t he electric, gas, oil or water company threatened to shut off services in your home? No 02/06/2023 Comments Unknown Sex and Gender Information Value Date Recorded Sex Assigned at Female 01/04/2023 8:59 AM EDT Legal Sex Female 8:34 PM EDT Gender Identity Female 01/04/2023 8:59 AM EDT Sexual Orientation Choose not to disclose 2022 8:59 AM EDT Last Filed Vital Signs Vital Sign Reading Time Taken Comments Blood Pressure 158/82 02/06/2023 3:29 PM EDT Pulse 80 02/06/2023 3:29 PM EDT Temperature 36.8 C (98.2 F) 02/06/2023 3:29 PM EDT Respiratory Rate 16 02/06/2023 3:29 PM EDT Oxygen Saturation - - Inhaled Oxygen Concentration - - Weight 112 kg (247 lb 12.8 oz) 02/06/2023 3:29 P M EDT Height 168.6 cm (5' 6.38 ) 02/06/2023 3:29 PM ED T Body Mass Index 39.55 02/06/2023 3:29 PM EDT Plan of Treatment Health Maintenance Due Date Last Done Comments Depression Screening 1983 Lipid Panel 1983 Disability Screening 1983 Alcohol/Substance Use Screening 1995 Family Planning (PISQ) 1998 HPV Vaccines (1 - 3-dose series) 1998 Hepatitis A Vaccines (1 of 2 - Risk 2-dose series) 2002 Hepatitis B Vaccines (1 of 3 - 19+ 3-dose series) 2002 Pap Smear 02/29/2004 Cervical Cancer Screening 2013 HPV/Cotest 2013 Mammogram 2023 SDOH Screening 02/07/2024 02/06/2023 Tobacco Screening 02/07/2024 02/06/2023 COVID-19 Vaccine ( season) 2024 07/16/2020 Influenza Vaccine (#1) 2024 , 03/31/2022, 01/14/2021, Additional history exists DTaP/Tdap/Td Vaccines (4 - Td or Tdap) 02/06/2033 02/06/2023, 01/22/2018, 02/10/2013 Zoster Vaccines (1 of 2) 2033 RSV Patients and Patients Aged 60 years or older (1 - 1-dose 75+ series) 2058 HIV Screening Completed 11/09/2020 Hepatitis C Screening Completed 11/09/2020 HIB Vaccines Aged Out No longer eligi ble based on patient's age to complete this topic IPV Vaccines Aged Out No longer eligi ble based on patient's age to complete this topic Meningococcal B Vaccine Aged Out No l onger eligible based on patient's age to complete this topic Meningococcal Vaccine Aged Out No laith vinayak eligible based on patient's age to complete this topic Pneumococcal Vaccine: Pediatrics (0 to 5 Years) and At-Risk Patients (6 to 49) Years Aged Out No longer eligible based on patient's age to complete this topic RSV under 20 months Aged Out No longe r eligible based on patient's age to complete this topic Rotavirus Vaccines Aged Out No longer eligible based on patient's age to complete this topic Procedures Procedure Name Priority Date/Time Associated Diagnosis Comments RITA HISTORICAL HEPATITIS C ANTIBODY, QUALITATIVE Routine 11/09/2020 11:22 AM EDT HIV 1/2 ANTIGEN/ANTIBODY, FOURTH GENERATION W/RFL Routine 11/09/2020 11:22 AM EDT from Last 3 Months or Most Recently Relevant to Health Maintenance Results * Hepatitis C antibody, qualitative (11/09/2020 11:22 AM EDT) HCV NON-REACTI VE NON-REACTI VE [facility] 11/09/2020 11:2 2 AM EDT us Historical Provider HISTORICAL/NON ORDERABLE LABS Final Result [facility] [address] * HIV-1/2 antigen/antibody (11/09/2020 11:22 AM EDT) HIV 1/2 ANTIBODY SCREEN NON-REACTI VE NON-REACTI VE [facility] HIV-1 ANTIGEN NON-REACTI VE NON-REACTI VE [facility] 11/09/2020 11:2 2 AM EDT us Historical Provider LAB BLOOD ORDERABLES Gabrielle de leon Result [facility] [address] from Last 3 Months or Most Recently Relevant to Health Maintenance [facility] [employer] [facility] * Guarantor: Genoveva Laws Account Type Relation to Patient Date of Phone Billing Address Dental Self Care Teams Patient Case Coordinator Relationship Specialty Start Date End Date PcpTl Unassigned PCP - General Family Medicine 01/08/25
== END 2025-02-25 10:37 | disposition home or self-care (01) ==
PROVIDERS: Emergency Provider Emergency Medicine; PCP Family Medicine
DX: S76.911A Strain of unspecified muscles, fascia and tendons at thigh level, right thigh, initial encounter (principal); X58.XXXA Exposure to other specified factors, initial encounter; Y93.9 Activity, unspecified; Y92.9 Unspecified place or not applicable
CPT/HCPCS: 73552; 96372; 99284; J1885

== ENCOUNTER → 2025-02-25 08:19 | Outpatient (BNV) | payer SELFPAY | PROVIDERS: Emergency Provider Emergency Medicine; PCP Family Medicine; Visit Provider Radiology Diagnostic Radiology | DX: S76.311A Strain of muscle, fascia and tendon of the posterior muscle group at thigh level, right thigh, initial encounter (principal) | CPT/HCPCS: 73552 ==